=== PATIENT | female | born 1985 | race Caucasian/White ===

== ENCOUNTER → 2018-05-21 | Outpatient (CLI) | payer BC ==
[~2018-05-21] MED LIST: ACHD5005 PO; AMOX500C2 PO; BCP PO; CHLO1TAB14 PO; CIPR-225 PO; CPR500T PO; D-ME245. PO; DAPS100T3 PO; DULO30CA3 PO; HYDR-757 PO; HYDR-87 PO; HYDR1CAP2 PO; IBP800T PO; IBUP-1773 PO; MECL-124 PO; MEDR104D2 SQ; METH4TAB PO; OMEP20CA12 PO; ONDA4TAB8 SL; PANT40TA2 PO; PHEN200T16 PO; POLY17PO6 PO; PRD20T PO; SCOP1PAT TD; SUCR1TAB36 PO; SULF1TAB38 PO; TRAM-42 PO; TRIA16.5 NS; TRM50T PO
[2018-05-21 13:49] VITALS: BP 122/75
--- NOTE | 2018-05-21 13:49 | Cardiology Stress Test Report ---
Stress Test Report Date of Procedure/Referring: PCP Tejal Wagner Admitting Physician Kourtney Virgen MD Indications: Chest pain Baseline Heart Rate: 79 Baseline Blood Pressure: Blood Pressure Systolic: 122 Blood Pressure Diastolic: 75 Baseline EKG: Baseline EKG: normal Summary/Conclusion: Summary: In summary, the patient started exercising with a baseline heart rate, blood pressure and EKG mentioned above Patient was able to exercise for a total of 1:30 minutes on Dov protocol, 12.1 METs Maximum heart rate 177 Maximum blood pressure 204/72 Stress EKG Minimal nondiagnostic changes Recovery EKG Return to baseline Conclusion: 1. Good exercise tolerance for a total of 10:30 minutes on Dov protocol, 12.1 METs, achieving 94 percent of maximum expected heart rate 2. Minimal nondiagnostic EKG changes with exercise returned to baseline during recovery 3. No arrhythmia was noted 4. Hypertensive response to exercise returned to baseline during recovery STEVEN LAGUNAS MD May 21, 2018 13:49
== END ==
LOC: CARD 10:17
PROVIDERS: ATTEND Physician Assistant
DX: R07.89 Other chest pain (principal); I10 Essential (primary) hypertension; E66.9 Obesity, unspecified; Z68.24 Body mass index [BMI] 24.0-24.9, adult
CPT/HCPCS: 93017